=== PATIENT | female | born 1945 | race Caucasian/White ===

== ENCOUNTER 2020-10-29 00:38 | Inpatient (IN) | payer OTHER ==
[~2020-10-29] VITALS: Ht 165.1 cm; Wt 135.0 kg
[~2020-10-29 00:38] MED LIST: ASPIRIN CHEWABL81 MG PO; ASPIRIN325 MG PO; CERTAGEN1 EACH PO; CLARITIN10 M2 PO; FISH OIL 1,0001 EACH PO; LISINOPRIL-HCT1 EAC2 PO; MAGNESIUM 300300 MG PO; NORVASC5 MG PO; PERCOCET 5-3251 EACH PO; PRAVACHOL40 MG PO; PROTONIX 40MG T40 MG PO; PROZAC20 MG PO; TOPROL XL100 MG PO; TURMERIC500 M1 PO; VITAMIN D-32000 UNIT PO
[2020-10-29 01:16] LABS: BASOPHIL 0 % (0-2); EOSINOPHIL 0 % (0-7); HCT 21.5 % (37.0-47.0); HGB 7.2 g/dl (12.5-16.0); LYMPHOCYTE 16.7 % (15-48); MCH 27.7 pg (25.0-31.0); MCHC 33.5 g/dL (32.0-36.0); MCV 82.7 fL (78.0-100.0); MONOCYTE 5.6 % (0-12); MPV 10.3 fL (6.0-9.5); NEUTROPHIL 77.7 % (41-80); NRBC 0; PLT 106 K/uL (150-400); RDW 16.2 % (11.5-14.0)
[2020-10-29 01:18] LABS: INR 1.1 (0.9-1.2); PROTHROMBIN TIME 13.6 SECONDS (11.8-13.4); PTT 28.8 SECONDS (24.4-34.7)
[2020-10-29 01:24] LABS: BILIRUBIN - TOTAL 0.8 mg/dL (0.2-1.0); BUN/CREAT RATIO (CALC) 23.3 RATIO; CREATININE 0.9 mg/dL (0.51-0.95); GLOBULIN (CALCULATION) 3.2 g/dL; POTASSIUM 3.2 mmol/L (3.5-5.1); TOTAL PROTEIN 5.2 g/dL (6.4-8.2)
[2020-10-29 01:29] LABS: WBC 0.2 K/uL (4.0-10.5)
[2020-10-29 02:07] LABS: BILIRUBIN NEGATIVE (NEGATIVE); BLOOD 2+ Ery/uL (NEGATIVE); COLOR YELLOW (YELLOW); GLUCOSE (U) NORMAL (NORMAL); LEUKOCYTES 1+ Leu/uL (NEGATIVE); NITRITE POSITIVE (NEGATIVE); PROTEIN TRACE (LOW) mg/dL (NEGATIVE); SPECIFIC GRAVITY <=1.005 (1.001-1.030); UROBILINOGEN 0.2 mg/dL (0.2-1.0)
[2020-10-29 02:08] LABS: CLARITY HAZY (CLEAR)
[2020-10-29 02:16] LABS: FT4 (FREE T4) 1.7 ng/dL (0.76-1.46)
[2020-10-29 02:17] LABS: BACTERIA 3+
[2020-10-29 02:19] LABS: LACTIC ACID 0.9 mmol/L (0.4-1.9)
[2020-10-29 03:26] LABS: CORONAVIRUS 2019 SARS-COV-2 NEGATIVE (NEGATIVE); INFLUENZA A NAA NEGATIVE (NEGATIVE)
[2020-10-29] MEDS ORDERED: LASIX20 MG PO (09:49)
[2020-10-29] MEDS ORDERED: STOOL SOFTENER50 MG PO (09:50)
[2020-10-29] MEDS ORDERED: DEXAMETHASONE 2M2 MG PO (09:51)
[2020-10-29] MEDS ORDERED: COMPAZINE10 MG PO (09:52)
[2020-10-29] MEDS ORDERED: BIOTIN5000 MC1 PO (09:53)
[2020-10-29] MEDS ORDERED: ACETAMINOPHEN500 M1 PO (09:53)
--- NOTE | 2020-10-29 13:52 | NUR ---
SPOKE WITH DR. CHU REGARDING PLAN FOR PT. DR. CHU HAS NOT SEEN PT AT THIS TIME.
[2020-10-30 05:03] LABS: BASOPHIL 0 % (0-2); EOSINOPHIL 0 % (0-7); HCT 20.7 % (37.0-47.0); HGB 6.8 g/dl (12.5-16.0); MCH 27.8 pg (25.0-31.0); MCHC 32.9 g/dL (32.0-36.0); MCV 84.5 fL (78.0-100.0); MPV 10.3 fL (6.0-9.5); NRBC 0; PLT 117 K/uL (150-400); RBC 2.45 M/uL (4.20-5.40); RDW 16.5 % (11.5-14.0)
[2020-10-30 05:11] LABS: WBC 0.3 K/uL (4.0-10.5)
[2020-10-30 05:12] LABS: BUN/CREAT RATIO (CALC) 13.2 RATIO; CREATININE 0.76 mg/dL (0.51-0.95)
[2020-10-31 12:09] LABS: BASOPHIL 0 % (0-2); EOSINOPHIL 1.8 % (0-7); HCT 20.4 % (37.0-47.0); HGB 6.7 g/dl (12.5-16.0); LYMPHOCYTE 16.4 % (15-48); MCHC 32.8 g/dL (32.0-36.0); MCV 85.4 fL (78.0-100.0); MONOCYTE 47.3 % (0-12); NEUTROPHIL 34.5 % (41-80); NRBC 0; PLT 137 K/uL (150-400); RBC 2.39 M/uL (4.20-5.40)
[2020-10-31 12:24] LABS: BUN/CREAT RATIO (CALC) 9.2 RATIO; CREATININE 0.65 mg/dL (0.51-0.95); POTASSIUM 3.1 mmol/L (3.5-5.1)
[2020-10-31 12:49] LABS: WBC 0.6 K/uL (4.0-10.5)
[2020-11-01 07:15] LABS: BUN/CREAT RATIO (CALC) 9.4 RATIO; CREATININE 0.64 mg/dL (0.51-0.95); POTASSIUM 3.4 mmol/L (3.5-5.1)
[2020-11-01 07:22] LABS: HCT 20.3 % (37.0-47.0); HGB 6.7 g/dl (12.5-16.0); LYMPHOCYTE 14.9 % (15-48); MCH 28.2 pg (25.0-31.0); MCV 85.3 fL (78.0-100.0); MONOCYTE 33.7 % (0-12); MPV 10.4 fL (6.0-9.5); NEUTROPHIL 47.4 % (41-80); NRBC 6.9; RBC 2.38 M/uL (4.20-5.40); RDW 17.2 % (11.5-14.0)
[2020-11-01 08:15] LABS: PLT 140 K/uL (150-400)
[2020-11-02 07:36] LABS: BUN/CREAT RATIO (CALC) 10.9 RATIO; CREATININE 0.64 mg/dL (0.51-0.95); POTASSIUM 3.6 mmol/L (3.5-5.1)
[2020-11-02 07:50] LABS: BASOPHIL 0.7 % (0-2); EOSINOPHIL 0 % (0-7); HGB 7.2 g/dl (12.5-16.0); LYMPHOCYTE 7.7 % (15-48); MCH 28.7 pg (25.0-31.0); MCHC 32.7 g/dL (32.0-36.0); MCV 87.6 fL (78.0-100.0); MONOCYTE 18.2 % (0-12); NEUTROPHIL 65.9 % (41-80); NRBC 3.7; PLT 144 K/uL (150-400); RBC 2.51 M/uL (4.20-5.40); RDW 17.2 % (11.5-14.0)
--- NOTE | 2020-11-02 16:31 | NUR ---
11/02/20 Ms. Sexton lives at [facility]. She was modified independent with the use of a cane and rw. Therapy has recommended SNF. Ms. Sexton chose [facility], [facility], [facility], and [facility]. Referrals have been made to each. [facility] has declined to accept patient due to radiation.
--- NOTE | 2020-11-04 14:37 | NUR ---
11/04/20 Patient's preference, [facility], has declined the referral. Both [facility] and [facility] will accept patient on Sunday. Pt chose [facility]. [facility] has initiated insurance authorization for possible admission on 11/08/20.
[2020-11-05 04:10] LABS: BASOPHIL 0.5 % (0-2); EOSINOPHIL 0 % (0-7); HCT 23.2 % (37.0-47.0); LYMPHOCYTE 4.5 % (15-48); MCH 27.9 pg (25.0-31.0); MCHC 31.5 g/dL (32.0-36.0); MCV 88.5 fL (78.0-100.0); MONOCYTE 8.9 % (0-12); MPV 9.6 fL (6.0-9.5); NEUTROPHIL 80.1 % (41-80); NRBC 0.9; PLT 136 K/uL (150-400); RBC 2.62 M/uL (4.20-5.40); RDW 19.4 % (11.5-14.0)
[2020-11-05 04:32] LABS: BUN/CREAT RATIO (CALC) 12.3 RATIO; CREATININE 0.65 mg/dL (0.51-0.95); POTASSIUM 3.6 mmol/L (3.5-5.1)
[2020-11-05 04:49] LABS: HGB 7.3 g/dl (12.5-16.0); WBC 9.2 K/uL (4.0-10.5)
--- NOTE | 2020-11-05 13:00 | NUR ---
11/05/20 [facility] has received insurance authorization for admission on 11/08/20. - Ms. Sexotn reports that her friend can provide transportation.
[2020-11-07 05:08] LABS: BASOPHIL 0.5 % (0-2); EOSINOPHIL 0 % (0-7); HCT 23.7 % (37.0-47.0); HGB 7.6 g/dl (12.5-16.0); LYMPHOCYTE 6.2 % (15-48); MCH 28.8 pg (25.0-31.0); MCHC 32.1 g/dL (32.0-36.0); MCV 89.8 fL (78.0-100.0); MPV 9.7 fL (6.0-9.5); NEUTROPHIL 79.7 % (41-80); NRBC 0.3; PLT 169 K/uL (150-400); RBC 2.64 M/uL (4.20-5.40); RDW 20.3 % (11.5-14.0)
[2020-11-07 05:14] LABS: WBC 6.4 K/uL (4.0-10.5)
[2020-11-07 05:31] LABS: CREATININE 0.69 mg/dL (0.51-0.95); POTASSIUM 3.4 mmol/L (3.5-5.1)
--- NOTE | 2020-11-08 10:26 | NUR ---
11/08/20 Patient will be discharged to [facility] following radiation treatment. Ms. Sexton reports to have spoken to a lead generation representative with her cancer policy and was informed that EMS transport will be covered. She was educated to the EMS ABN. Nursing will inquire with physician re: pt meeting criteria for EMS.
== END 2020-11-08 17:13 | DRG 809 ==
LOC: FER 00:38 → FMS 04:49
PROVIDERS: Allergy & Immunology Allergy; Emergency Medicine Emergency Medical Services; Internal Medicine; ADMIT Family Medicine
PROC: 8E0ZXY6 Isolation (ICD-10-PCS; principal; 2020-10-29)
PROC: 30233N1 Transfusion of Nonautologous Red Blood Cells into Peripheral Vein, Percutaneous Approach (ICD-10-PCS; 2020-11-01)
DX: D61.810 Antineoplastic chemotherapy induced pancytopenia (principal); N39.0 Urinary tract infection, site not specified; E87.1 Hypo-osmolality and hyponatremia; K91.2 Postsurgical malabsorption, not elsewhere classified; B37.0 Candidal stomatitis; Z20.822 Contact with and (suspected) exposure to COVID-19; I25.10 Atherosclerotic heart disease of native coronary artery without angina pectoris; K21.9 Gastro-esophageal reflux disease without esophagitis; E87.6 Hypokalemia; T45.1X5A Adverse effect of antineoplastic and immunosuppressive drugs, initial encounter; I12.9 Hypertensive chronic kidney disease with stage 1 through stage 4 chronic kidney disease, or unspecified chronic kidney disease; N18.30 Chronic kidney disease, stage 3 unspecified; D63.1 Anemia in chronic kidney disease; C51.9 Malignant neoplasm of vulva, unspecified; E78.00 Pure hypercholesterolemia, unspecified; E86.0 Dehydration; M19.90 Unspecified osteoarthritis, unspecified site; S30.810A Abrasion of lower back and pelvis, initial encounter; B96.20 Unspecified Escherichia coli [E. coli] as the cause of diseases classified elsewhere; Z92.21 Personal history of antineoplastic chemotherapy; Z92.3 Personal history of irradiation; Z98.890 Other specified postprocedural states; Z98.84 Bariatric surgery status; Z80.3 Family history of malignant neoplasm of breast
CPT/HCPCS: 36415; 36430; 71045; 80048; 80053; 81001; 83605; 84145; 84439; 84443; 84484; 85025; 85610; 85730; 86850; 86900; 86901; 86922; 87040; 87045; 87046; 87076; 87077; 87088; 87186; 87449; 93005; 97110; 97162; 97530-GP; J0692; J1447; J1650; J2405; J7030; J7120; P9016; U0002

== ENCOUNTER 2021-08-23 10:12 | Inpatient (IN) | payer OTHER ==
[~2021-08-23] VITALS: Ht 165.1 cm; Wt 120.5 kg
[~2021-08-23 10:12] MED LIST changes: +ACETAMINOPHEN500 M1 PO; +BIOTIN5000 MC1 PO; +COMPAZINE10 MG PO; +DEXAMETHASONE 2M2 MG PO; +LASIX20 MG PO; +STOOL SOFTENER50 MG PO
[2021-08-23 11:01] LABS: BASOPHIL 0.1 % (0-2); EOSINOPHIL 0 % (0-7); HCT 36.4 % (37.0-47.0); HGB 11.6 g/dl (12.5-16.0); LYMPHOCYTE 1.5 % (15-48); MCH 30.9 pg (25.0-31.0); MCHC 31.9 g/dL (32.0-36.0); MCV 96.8 fL (78.0-100.0); MONOCYTE 1.9 % (0-12); MPV 10.1 fL (6.0-9.5); NRBC 0; PLT 229 K/uL (150-400); RBC 3.76 M/uL (4.20-5.40); RDW 13.8 % (11.5-14.0); WBC 7.9 K/uL (4.0-10.5)
[2021-08-23 11:17] LABS: LACTIC ACID 2.7 mmol/L (0.4-1.9)
[2021-08-23 11:26] LABS: BILIRUBIN - TOTAL 0.6 mg/dL (0.2-1.0); BUN/CREAT RATIO (CALC) 22.8 RATIO; CREATININE 1.23 mg/dL (0.51-0.95); GLOBULIN (CALCULATION) 4.4 g/dL; POTASSIUM 3.6 mmol/L (3.5-5.1); TOTAL PROTEIN 7.4 g/dL (6.4-8.2)
[2021-08-23 15:53] LABS: INR 1.1 (0.9-1.2); PROTHROMBIN TIME 13.6 SECONDS (11.8-13.4); PTT 29.8 SECONDS (24.4-34.7)
[2021-08-23 16:18] LABS: IRON % SATURATION 7.8 %SAT (20-50)
[2021-08-23] MEDS ORDERED: K-TAB ER20 MEQ PO (17:27)
[2021-08-23] MEDS ORDERED: VALSARTAN160 MG PO (17:27)
--- NOTE | 2021-08-23 18:00 | NUR ---
CENTRAL LINE PLACED WITH DR. URIBE. TIME OUT COMPLETED AT 1800. STERILE TECHNIQUE KEPT THOURHGOUT PROCEDURE. COMFIRMED WITH CHEST XRAY AND OKAYED WITH MD TO USE.
[2021-08-23 20:17] LABS: LACTIC ACID 1.2 mmol/L (0.4-1.9)
[2021-08-24 06:22] LABS: HGB 9.1 g/dl (12.5-16.0); MCH 31.2 pg (25.0-31.0); MCHC 32.5 g/dL (32.0-36.0); MCV 95.9 fL (78.0-100.0); RBC 2.92 M/uL (4.20-5.40); WBC 13.8 K/uL (4.0-10.5)
--- NOTE | 2021-08-24 07:09 | NUR ---
LEVOPHED DRIP TITRATED TO ZERO AT 0600AM.
[2021-08-24 07:30] LABS: ALBUMIN 2.3 g/dL (3.4-5.0); BILIRUBIN - DIRECT 0.2 mg/dL (0.00-0.20); BILIRUBIN - TOTAL 0.4 mg/dL (0.2-1.0); BUN/CREAT RATIO (CALC) 23.8 RATIO; CREATININE 1.22 mg/dL (0.51-0.95); TOTAL PROTEIN 5.3 g/dL (6.4-8.2)
[2021-08-24 08:53] LABS: BASOPHIL 0.2 % (0-2); EOSINOPHIL 0.1 % (0-7); HCT 32.7 % (37.0-47.0); HGB 10.4 g/dl (12.5-16.0); LYMPHOCYTE 3.2 % (15-48); MCH 30.4 pg (25.0-31.0); MCHC 31.8 g/dL (32.0-36.0); MCV 95.6 fL (78.0-100.0); MONOCYTE 4.2 % (0-12); MPV 9.6 fL (6.0-9.5); NEUTROPHIL 89.8 % (41-80); NRBC 0; PLT 198 K/uL (150-400); RBC 3.42 M/uL (4.20-5.40); RDW 14.2 % (11.5-14.0); WBC 14.2 K/uL (4.0-10.5)
[2021-08-24 11:34] LABS: BILIRUBIN NEGATIVE (NEGATIVE); BLOOD NEGATIVE Ery/uL (NEGATIVE); CLARITY CLEAR (CLEAR); COLOR YELLOW (YELLOW); GLUCOSE (U) NORMAL (NORMAL); LEUKOCYTES NEGATIVE Leu/uL (NEGATIVE); NITRITE NEGATIVE (NEGATIVE); PROTEIN NEGATIVE (NEGATIVE); SPECIFIC GRAVITY 1.015 (1.001-1.030); UROBILINOGEN 0.2 mg/dL (0.2-1.0)
[2021-08-24 11:43] LABS: BACTERIA TRACE; SQUAMOUS EPITHELIAL CELLS RARE; URINARY RBC RARE; URINARY WBC RARE
--- NOTE | 2021-08-24 12:47 | NUR ---
08/24 Ms. Sexton lives at [facility]. Her Brother also lives in the [facility]. A friend in the [facility], checks on her twice a day. - She has a rollator, rw, power wc, 3in1, [id number], and s. seat. - PCP is Mary Giraldo. - Ms. Sexton was swimming 4 times per week. - [facility] has seen her in the past and she would like [facility] again if needed.
[2021-08-25 06:18] LABS: BASOPHIL 0.2 % (0-2); EOSINOPHIL 0.6 % (0-7); HGB 9.3 g/dl (12.5-16.0); LYMPHOCYTE 6.8 % (15-48); MCH 30.9 pg (25.0-31.0); MCHC 32.1 g/dL (32.0-36.0); MCV 96.3 fL (78.0-100.0); MPV 9.8 fL (6.0-9.5); NEUTROPHIL 84.3 % (41-80); NRBC 0; PLT 183 K/uL (150-400); RBC 3.01 M/uL (4.20-5.40); RDW 14.3 % (11.5-14.0)
[2021-08-25 07:19] LABS: BILIRUBIN - TOTAL 0.3 mg/dL (0.2-1.0); BUN/CREAT RATIO (CALC) 18.4 RATIO; CREATININE 1.14 mg/dL (0.51-0.95); GLOBULIN (CALCULATION) 3.6 g/dL; MAGNESIUM 1.6 mg/dL (1.8-2.4); POTASSIUM 3.1 mmol/L (3.5-5.1); TOTAL PROTEIN 5.6 g/dL (6.4-8.2)
--- NOTE | 2021-08-25 13:59 | NUR ---
08/25/21 A referral was made to [facility] for wound care per patient choice.
[2021-08-26 05:33] LABS: BASOPHIL 0.4 % (0-2); EOSINOPHIL 1.9 % (0-7); HCT 29.2 % (37.0-47.0); HGB 9.2 g/dl (12.5-16.0); LYMPHOCYTE 11.8 % (15-48); MCH 30.5 pg (25.0-31.0); MCHC 31.5 g/dL (32.0-36.0); MCV 96.7 fL (78.0-100.0); MONOCYTE 6.7 % (0-12); MPV 9.6 fL (6.0-9.5); NEUTROPHIL 78.4 % (41-80); NRBC 0; PLT 194 K/uL (150-400); RBC 3.02 M/uL (4.20-5.40); RDW 14.3 % (11.5-14.0); WBC 4.8 K/uL (4.0-10.5)
[2021-08-26 05:51] LABS: BUN/CREAT RATIO (CALC) 14.3 RATIO; C-REACTIVE PROTEIN 11.9 mg/dL (<=0.90); CREATININE 0.98 mg/dL (0.51-0.95); POTASSIUM 3.8 mmol/L (3.5-5.1)
[2021-08-26 05:52] LABS: MAGNESIUM 2.2 mg/dL (1.8-2.4)
--- NOTE | 2021-08-26 11:52 | NUR ---
08/26/21 IV Rocephine home infusion has now been ordered. A referral was made to [facility]. Faith Yeboah, [phone]. will call the unit when the [facility] receives insurance approval.
== END 2021-08-26 15:15 | disposition home health service (06) | DRG 862 ==
LOC: FER 10:12 → FICU 15:31
PROVIDERS: Emergency Medicine; Family Medicine; ADMIT Internal Medicine
PROC: 3E033XZ Introduction of Vasopressor into Peripheral Vein, Percutaneous Approach (ICD-10-PCS; principal; 2021-08-23)
PROC: 3E03329 Introduction of Other Anti-infective into Peripheral Vein, Percutaneous Approach (ICD-10-PCS; 2021-08-23)
PROC: 02HV33Z Insertion of Infusion Device into Superior Vena Cava, Percutaneous Approach (ICD-10-PCS; 2021-08-23)
PROC: 0DJD8ZZ Inspection of Lower Intestinal Tract, Via Natural or Artificial Opening Endoscopic (ICD-10-PCS; 2021-08-24)
PROC: B24BZZZ Ultrasonography of Heart with Aorta (ICD-10-PCS; 2021-08-25)
DX: T81.41XA Infection following a procedure, superficial incisional surgical site, initial encounter (principal); A40.1 Sepsis due to streptococcus, group B; R65.21 Severe sepsis with septic shock; N17.9 Acute kidney failure, unspecified; Z68.41 Body mass index [BMI] 40.0-44.9, adult; I13.0 Hypertensive heart and chronic kidney disease with heart failure and stage 1 through stage 4 chronic kidney disease, or unspecified chronic kidney disease; K92.1 Melena; K42.0 Umbilical hernia with obstruction, without gangrene; I50.9 Heart failure, unspecified; Z20.822 Contact with and (suspected) exposure to COVID-19; K80.20 Calculus of gallbladder without cholecystitis without obstruction; N18.2 Chronic kidney disease, stage 2 (mild); E66.01 Morbid (severe) obesity due to excess calories; T81.44XA Sepsis following a procedure, initial encounter; E78.5 Hyperlipidemia, unspecified; D63.1 Anemia in chronic kidney disease; R73.9 Hyperglycemia, unspecified; I25.10 Atherosclerotic heart disease of native coronary artery without angina pectoris; Z96.641 Presence of right artificial hip joint; Y83.8 Other surgical procedures as the cause of abnormal reaction of the patient, or of later complication, without mention of misadventure at the time of the procedure; Z90.79 Acquired absence of other genital organ(s); Z85.44 Personal history of malignant neoplasm of other female genital organs; Z92.3 Personal history of irradiation; Z98.84 Bariatric surgery status; Z80.3 Family history of malignant neoplasm of breast; Z92.21 Personal history of antineoplastic chemotherapy
CPT/HCPCS: 36415; 71045; 80048; 80053; 80076; 80202; 81001; 82607; 82746; 83036; 83540; 83550; 83605; 83690; 83735; 83880; 84145; 85025; 85610; 85730; 86140; 87040; 87045; 87046; 87077; 87088; 87205; 87449; 93005; J0696; J1650; J2543; J2916; J3370; J3420; J3475; J7030; J7120; Q9967; U0002